=== PATIENT | male | born 1980 | race Asian ===

== ENCOUNTER 2019-11-20 22:53 | Emergency (ER) | payer OTHER ==
[~2019-11-20] VITALS: Ht 167.6 cm; Wt 65.8 kg
[2019-11-20 23:09] VITALS: Ht 167.6 cm; Wt 65.8 kg
[2019-11-21 00:17] VITALS: BP 119/86
== END 2019-11-21 00:17 | disposition home or self-care (01) ==
LOC: ED 22:53
DX: H10.31 Unspecified acute conjunctivitis, right eye (principal)

== ENCOUNTER 2019-12-11 09:22 | Emergency (ER) | payer OTHER ==
[~2019-12-11] VITALS: Ht 170.2 cm; Wt 66.2 kg
[2019-12-11 09:35] VITALS: Ht 170.2 cm; Wt 66.2 kg
[2019-12-11 11:06] VITALS: BP 124/72
== END 2019-12-11 11:06 | disposition home or self-care (01) ==
LOC: ED 09:22
DX: J45.909 Unspecified asthma, uncomplicated (principal); Z88.0 Allergy status to penicillin
CPT/HCPCS: J7512